=== PATIENT | male | born 1960 | race Caucasian/White ===

== ENCOUNTER 2022-11-06 07:45 | Outpatient (CLI) | payer OTHER, SELFPAY ==
[2022-11-06 09:31] LABS: White Blood Count* 7.37 K/uL (4.50-11.00)
[2022-11-06 09:48] LABS: Hemoglobin A1C* 5.27 % (0-5.6)
[2022-11-06 09:49] LABS: C Reactive Protein* 0.6 mg/dL (0.5-1.0)
[2022-11-06 10:10] LABS: Erythrocyte SedimentationRate* 5 mm/hr (2-15)
== END 2022-11-06 07:46 | disposition home or self-care (01) ==
LOC: WOUND 07:47
PROVIDERS: Visit Provider Surgery
DX: L03.116 Cellulitis of left lower limb (principal); I73.9 Peripheral vascular disease, unspecified; Z13.1 Encounter for screening for diabetes mellitus
CPT/HCPCS: 36415; 83036; 85048; 85651; 86140; 97597; 97598; 99213

== ENCOUNTER 2022-11-13 10:45 | Outpatient (CLI) | payer OTHER, SELFPAY | END 2022-11-13 10:46 | disposition home or self-care (01) | LOC: WOUND 10:45 | PROVIDERS: Visit Provider Surgery | DX: L03.116 Cellulitis of left lower limb (principal); I73.9 Peripheral vascular disease, unspecified; I87.2 Venous insufficiency (chronic) (peripheral) | CPT/HCPCS: 99213 ==

== ENCOUNTER 2022-11-20 10:44 | Outpatient (CLI) | payer OTHER, SELFPAY | END 2022-11-20 10:45 | disposition home or self-care (01) | LOC: WOUND 10:44 | PROVIDERS: Visit Provider Surgery | DX: L03.116 Cellulitis of left lower limb (principal); I73.9 Peripheral vascular disease, unspecified; I87.2 Venous insufficiency (chronic) (peripheral) | CPT/HCPCS: 99213 ==